=== PATIENT | female | born 1955 | race Caucasian/White ===

== ENCOUNTER 2019-04-13 13:44 | Observation (INO) ==
[2019-04-13 15:29] LABS: Basophils % 0.4 % (0.0-0.8); Eosinophils # 0.1 10*3/uL (0.0-0.87); Eosinophils % 1.3 % (0.00-10.9); Hematocrit 39.9 VOL% (35.7-47.0); Hemoglobin 13.5 GM/DL (12.0-16.0); Immature Granulocytes % 0.4 %; Immature Granulocytes Absolute 0.04 #; Lymphocytes # 1.5 10*3/uL (1.4-4.0); Lymphocytes % 16.3 % (21.3-54.2); Mean Corpuscular HGB Conc 33.8 GM/DL (32-36); Mean Corpuscular Volume 88.7 FL (87-102); Mean Platelet Volume 11.4 FL (9.6-12.0); Monocytes % 4.6 % (1.7-12.7); Platelet Count 200 T/CUMM (130-400); White Blood Count 9.3 T/CUMM (4-12)
[2019-04-13 15:44] LABS: INR 0.9; PT Patient Result 10.2 SECS (9.6-12.2); Partial Thromboplastin Time 25.3 SECS (20.8-36.0)
[2019-04-13 15:53] LABS: Alanine Aminotransferase 32 U/L (13-56); Albumin 2.9 G/DL (3.4-5.0); Alkaline Phosphatase 93 U/L (45-117); Aspartate Amino Transferase 31 U/L (0-37); Bilirubin,Total < 0.39 MG/DL (0.2-1.0); Blood Urea Nitrogen 15 MG/DL (7-18); Calcium 8.3 MG/DL (8.5-10.1); Estimated Glom Filtration Rate 98 ML/MIN; Glucose 320 MG/DL (74-106); Osmolality,Calculated 282.1 MOS/KG (273-304); Total Protein 6.7 G/DL (6.4-8.3)
[2019-04-13 19:04] LABS: Apearance,Urine CLEAR (Clear); Bacteria,Urine Occasional /HPF (Few); Bilirubin,Urine Negative (Negative); Blood, Urine Negative (Negative); Glucose,Urine (UA) >=500 mg/dL (Negative); Ketones,Urine 5 mg/dL (Negative); Mucus,Urine Occasional /LPF (Occasional); Nitrite,Urine Negative (Negative); Protein,Urine Negative; RBC,Urine 2 /HPF (0-4); Squamous Epithelial Cell,Urine Occasional /HPF (0-10); Urine Color Yellow (Yellow); Urine Specific Gravity 1.051 (1.001-1.035); Urine Urobilinogen < 2.0 EU/DL (0.2-1.0)
[2019-04-13 19:20] LABS: Barbiturates Screen,Urine Negative (Negative); Benzodiazepines Screen,Urine Negative (Negative); Cannabinoid Screen,Urine Negative (Negative); Opiate Screen,Urine Negative (Negative); Phencyclidine Screen,Urine Negative (Negative)
[2019-04-13] MEDS ORDERED: ACETAMINOPHEN 500 MG TABLET PO STA (20:37)
[2019-04-13] MEDS ORDERED: ACETAMINOPHEN 500 MG TABLET ONE (20:38)
[2019-04-13] MEDS ORDERED: ATORVASTATIN 40 MG TABLET PO SCH (21:00)
[2019-04-14] MEDS: GABAPENTIN 100 MG CAPSULE PO SCH ×2 (00:29→09:53)
[2019-04-14] MEDS ORDERED: ACETAMINOPHEN 325 MG TABLET PO PRN (00:33)
[2019-04-14 04:52] LABS: Basophils # 0.1 10*3/uL (0.0-0.2); Basophils % 0.7 % (0.0-0.8); Eosinophils # 0.1 10*3/uL (0.0-0.87); Eosinophils % 1.9 % (0.00-10.9); Hematocrit 38.4 VOL% (35.7-47.0); Hemoglobin 12.8 GM/DL (12.0-16.0); Immature Granulocytes % 0.1 %; Immature Granulocytes Absolute 0.01 #; Lymphocytes % 30.5 % (21.3-54.2); Mean Corpuscular HGB Conc 33.3 GM/DL (32-36); Mean Corpuscular Volume 88.3 FL (87-102); Monocytes % 4.9 % (1.7-12.7); Neutrophils % 61.9 % (38.7-73.9); Platelet Count 176 T/CUMM (130-400); Red Blood Count 4.35 MC/CUMM (3.8-5.5); Red Cell Distribution Width 12.8 % (9.3-17.3); White Blood Count 6.7 T/CUMM (4-12)
[2019-04-14] MEDS ORDERED: ONDANSETRON 4 MG TABLET PO PRN (05:13)
[2019-04-14 05:25] LABS: Risk Ratio 2.56
[2019-04-14 05:28] LABS: Calcium 8.4 MG/DL (8.5-10.1); Osmolality,Calculated 278.5 MOS/KG (273-304)
[2019-04-14] MEDS ORDERED: ACETAMINOPHEN 325 MG TABLET PO SCH (09:00)
[2019-04-14] MEDS ORDERED: ASPIRIN CHEW 81 MG TABLET PO SCH (09:00)
[2019-04-14] MEDS ORDERED: CLOPIDOGREL 75 MG TABLET PO SCH (09:00)
[2019-04-14] MEDS ORDERED: POTASSIUM CHLORIDE 20 MEQ TABLET PO ONE (09:04)
[2019-04-14] MEDS ORDERED: INSULIN LISPRO 100 UNIT/ML SUBCUT SCH (09:30)
[2019-04-14 12:17] VITALS: BP 198/86
== END 2019-04-14 13:56 | disposition home or self-care (01) ==
LOC: N.EDINP 13:44 → N.ED 13:44 → N.EDINP 21:40 → N.TELES 22:31
PROVIDERS: ADMIT Internal Medicine; ATTEND Internal Medicine

== ENCOUNTER 2019-09-09 15:04 | Observation (INO) ==
[2019-09-09 15:32] LABS: Basophils % 0.4 % (0.0-0.8); Eosinophils # 0.1 10*3/uL (0.0-0.87); Eosinophils % 1.5 % (0.00-10.9); Hematocrit 43.4 VOL% (35.7-47.0); Hemoglobin 14.3 GM/DL (12.0-16.0); Immature Granulocytes % 0.3 %; Immature Granulocytes Absolute 0.02 #; Lymphocytes # 1.9 10*3/uL (1.4-4.0); Lymphocytes % 25.9 % (21.3-54.2); Mean Corpuscular HGB Conc 32.9 GM/DL (32-36); Mean Corpuscular Volume 82.4 FL (87-102); Mean Platelet Volume 10.9 FL (9.6-12.0); Monocytes % 4.7 % (1.7-12.7); Neutrophils % 67.2 % (38.7-73.9); Platelet Count 238 T/CUMM (130-400); Red Blood Count 5.27 MC/CUMM (3.8-5.5); Red Cell Distribution Width 13.5 % (9.3-17.3); White Blood Count 7.2 T/CUMM (4-12)
[2019-09-09 16:04] LABS: Albumin 3.5 G/DL (3.4-5.0); Bilirubin,Total 0.5 MG/DL (0.2-1.0); Calcium 9.3 MG/DL (8.5-10.1); Total Protein 7.5 G/DL (6.4-8.3)
[2019-09-09] MEDS ORDERED: SODIUM CHLORIDE 0.9% 1,000 ML IV STA (16:23)
[2019-09-09] MEDS ORDERED: ONDANSETRON 4 MG/2 ML VIAL IV ONE (16:53)
[2019-09-09] MEDS ORDERED: KETOROLAC 30 MG/1 ML VIAL IM STA ×2 (16:53→17:48)
[2019-09-09] MEDS ORDERED: MORPHINE 4 MG/1 ML VIAL IV STA (17:04)
[2019-09-09] MEDS ORDERED: oxyCODONE/ACETAMINOPHEN 5-325 MG TABLET PO PRN (18:16)
[2019-09-09] MEDS ORDERED: ACETAMINOPHEN 325 MG TABLET PO PRN (18:16)
[2019-09-09] MEDS ORDERED: traMADol 50 MG TABLET PO PRN (18:16)
[2019-09-09] MEDS ORDERED: DEXTROSE 10% 250 ML BAG IV PRN (20:32)
[2019-09-09] MEDS ORDERED: GLUCAGON 1 MG VIAL IM PRN (20:32)
[2019-09-09] MEDS ORDERED: ENOXAPARIN 40 MG/0.4 ML SYRINGE SUBCUT SCH (21:00)
[2019-09-09] MEDS: INSULIN REGULAR 100 UNIT/ML SUBCUT SCH (21:00)
[2019-09-09] MEDS: ONDANSETRON 4 MG/2 ML VIAL IV PRN (21:47)
[2019-09-10] MEDS: MORPHINE 4 MG/1 ML VIAL IV PRN ×3 (00:14→15:08)
[2019-09-10] MEDS: ONDANSETRON 4 MG/2 ML VIAL IV PRN (04:28)
[2019-09-10] MEDS ORDERED: ALUM/MAG/SIMETH/LIDO VISC 1:1 30 ML BOTTLE PO ONE (06:15)
[2019-09-10] MEDS: INSULIN REGULAR 100 UNIT/ML SUBCUT SCH ×3 (08:02→16:30)
[2019-09-10] MEDS ORDERED: ASPIRIN CHEW 81 MG TABLET PO SCH (09:00)
[2019-09-10] MEDS ORDERED: ASPIRIN EC 325 MG TABLET PO SCH (09:00)
[2019-09-10] MEDS ORDERED: TICAGRELOR 90 MG TABLET PO SCH (09:00)
[2019-09-10] MEDS ORDERED: METOPROLOL SUCCINATE XL 25 MG TABLET PO SCH (09:00)
[2019-09-10] MEDS ORDERED: ENALAPRIL 20 MG TABLET PO SCH (09:00)
[2019-09-10] MEDS ORDERED: MAGNESIUM OXIDE 400 MG TABLET PO SCH (09:00)
[2019-09-10] MEDS ORDERED: NON-FORMULARY MEDICATION (Dapagliflozin [Farxiga] 10 MG) PO SCH (09:00)
[2019-09-10 12:32] VITALS: BP 152/72
[2019-09-10] MEDS ORDERED: ATORVASTATIN 40 MG TABLET PO SCH (21:00)
== END 2019-09-10 17:03 | disposition home or self-care (01) ==
LOC: N.ED 15:04 → N.EDINP 15:04 → N.TELES 20:33
PROVIDERS: ADMIT Internal Medicine; ATTEND Internal Medicine